=== PATIENT | male | born 1960 | race African-American/Black ===

== ENCOUNTER 2018-06-12 10:30 | Inpatient (IN) | payer OTHER ==
--- NOTE | 2018-06-12 12:06 | HP ---
CIWA Score - CIWA Score Nausea/Vomitin Muscle Tremors: 2 Anxiety: 2 Agitation: 2 Paroxysmal Sweats: 1-Minimal Palms Moist Orientation: 0-Oriented Tacttile Disturbances: 1-Very Mild Itch/Numbness Auditory Disturbances: 1-Very Mild Visual Disturbances: 0-None Headache: 2-Mild CIWA-Ar Total Score: 13 CIWA Score Nausea/Vomitin Muscle Tremors: 2 Anxiety: 2 Agitation: 2 Paroxysmal Sweats: 1-Minimal Palms Moist Orientation: 0-Oriented Tacttile Disturbances: 1-Very Mild Itch/Numbness Auditory Disturbances: 1-Very Mild Visual Disturbances: 0-None Headache: 2-Mild CIWA-Ar Total Score: 13 - Admission Criteria Patient presents the following: CIWA greater than 12, Seizures, delirium tremens or hallucinations in the past 12 hours Admission Criteria Met: Admission criteria met Admission ROS BHS - HPI Chief Complaint: i need help to stop drinking alcohol and marijuana Allergies/Adverse Reactions: Allergies Allergy/AdvReac Type Severity Reaction Status Date / Time fish derived [Fish derived] Allergy Swelling Verified 06/12/18 12:07 No Known Drug Allergies Allergy Verified 06/12/18 12:29 Shellfish Allergy Swelling Verified 06/12/18 12:07 chlordiazepoxide HCl AdvReac sweating Verified 06/12/18 12:07 [From Librium] History of Present Illness: this 58 years old male with alcohol and marijuana dependence,seeking detox, withdrawal symptom,last detox 2016 [place] seizure last 2014 hypertension non compliance last 3 days ago nicotine dependence longest period of sobriety 1 year bipolar disorder plan to go to rehab after detox - Ebola screening Have you traveled outside of the country in the last 21 days: No Have you had contact with anyone from an Ebola affected area: No - Review of Systems Constitutional: Loss of Appetite, Malaise, Night Sweats, Changes in sleep, Weakness, Unintentional Wgt. Loss EENT: reports: Nose Congestion Respiratory: reports: No Symptoms reported Cardiac: reports: Palpitations GI: reports: Nausea, Poor Appetite, Abdominal cramping : reports: No Symptoms Reported Musculoskeletal: reports: Back Pain, Muscle Pain Integumentary: reports: Dryness Neuro: reports: Headache, Tremors Endocrine: reports: No Symptoms Reported Hematology: reports: No Symptoms Reported Psychiatric: reports: No Sypmtoms Reported, Judgement Intact, Mood/Affect Appropiate, Orientated x3, other (bipolar disorder) Patient History - Patient Medical History Hx Anemia: Yes (not sure; not taking any iron supplement) Hx Asthma: Yes (ON ALBUTEROL INHALER) Hx Chronic Obstructive Pulmonary Disease (COPD): No Hx Cancer: No Hx Cardiac Disorders: No Hx Congestive Heart Failure: No Hx Hypertension: Yes (ON MED non compliance) Hx Hypercholesterolemia: Yes (HX OF HIGH CHOLESTEROL BUT NOT ON MEDS.) Hx Pacemaker: No HX Cerebrovascular Accident: No Hx Seizures: No Hx Dementia: No Hx Diabetes: No Hx Gastrointestinal Disorders: Yes (GERD) Hx Liver Disease: No Hx Genitourinary Disorders: No Hx Sexually Transmitted Disorders: No Hx Renal Disease (ESRD): No Hx Thyroid Disease: No Hx Human Immunodeficiency Virus (HIV): No (NEGATIVE LAST 11/21) Hx Hepatitis C: No Hx Depression: Yes Hx Suicide Attempt: Yes (OVERDOSE IN 2011) Hx Bipolar Disorder: Yes Hx Schizophrenia: No Other Medical History: no suicidal,no homicidal - Patient Surgical History Past Surgical History: Yes Hx Neurologic Surgery: No Hx Cataract Extraction: No Hx Cardiac Surgery: No Hx Lung Surgery: No Hx Breast Surgery: No Hx Breast Biopsy: No Hx Abdominal Surgery: No Hx Appendectomy: No Hx Cholecystectomy: No Hx Genitourinary Surgery: No Hx Section: No Hx Orthopedic Surgery: Yes (right small finger in 1992 DAMAGE TO TENDON) Other Surgical History: SX R YAZIDI TO REMOVE CYST Anesthesia Reaction: No - PPD History Previous Implant?: Yes Documented Results: Positive w/o proof PPD to be Administered?: No - Smoking Cessation Smoking history: Current every day smoker Have you smoked in the past 12 months: Yes Aproximately how many cigarettes per day: 30 Cigars Per Day: 0 Hx Chewing Tobacco Use: No Initiated information on smoking cessation: Yes 'Breaking Loose' booklet given: 06/12/18 - Substance & Tx. History Hx Alcohol Use: Yes Hx Substance Use: Yes Substance Use Type: Alcohol, Marijuana Hx Substance Use Treatment: Yes ([facility] 2016) - Substances Abused Alcohol-rum/beer Route: Oral Frequency: Daily Amount used: 2 pts./1-6 pk. Age of first use: 10 Date of Last Use: 06/12/18 Marijuana Route: Smoking Frequency: Daily Amount used: $5 Age of first use: 9 Date of Last Use: 06/11/18 Family Disease History - Family Disease History Family Disease History: Diabetes: Mother (alcohol dependence,), Brother , Heart Disease: Mother, Other: Father (opaite dependence ,), Mother Admission Physical Exam [facility] - Vital Signs Vital Signs: Vital Signs Temperature 97.5 F L 06/14/18 08:04 Pulse Rate 69 06/14/18 08:04 Respiratory Rate 18 06/14/18 08:04 Blood Pressure 122/79 06/14/18 08:04 O2 Sat by Pulse Oximetry (%) - Physical General Appearance: Yes: Moderate Distress, Tremorous, Irritable, Sweating, Anxious HEENTM: Yes: Normal ENT Inspection, TREVON, Pharynx Normal Respiratory: Yes: Lungs Clear, Normal Breath Sounds, No Respiratory Distress Neck: Yes: Within Normal Limits, Supple, Trachea in good position Breast: Yes: Within Normal Limits Cardiology: Yes: Within Normal Limits, Regular Rhythm, Regular Rate, S1, S2 Abdominal: Yes: Within Normal Limits, Normal Bowel Sounds, Non Tender, Soft Genitourinary: Yes: Within Normal Limits Back: Yes: Muscle Spasm Musculoskeletal: Yes: Back pain, Muscle Pain Extremities: Yes: Within Normal Limits, Normal Range of Motion, Tremors Neurological: Yes: rug receiving clerk II-XII NML intact, Alert, Motor Strength 5/5 Integumentary: Yes: Dry Lymphatic: Yes: Within Normal Limits - Diagnostic (1) Alcohol dependence with uncomplicated withdrawal Current Visit: No Status: Acute (2) Cannabis dependence Current Visit: No Status: Acute (3) Nicotine dependence Current Visit: No Status: Acute Qualifiers: Nicotine product type: cigarettes Substance use status: uncomplicated Qualified Code(s): F17.210 - Nicotine dependence, cigarettes, uncomplicated (4) Syncope Current Visit: No Status: Acute (5) Essential hypertension Current Visit: No Status: Chronic (6) Hyperlipidemia Current Visit: No Status: Chronic (7) Bipolar I disorder Current Visit: No Status: Suspected (8) Alcohol related seizure Current Visit: Yes Status: Acute Cleared for Admission [facility] - Detox or Rehab [facility] Level of Care: Medically Managed Detox Regimen/Protocol: Valium S Breath Alcohol Content Breath Alcohol Content: 0
[2018-06-12] MEDS ORDERED: diazePAM 5 MG TABLET PO PRN (12:14)
[2018-06-12] MEDS ORDERED: MAG HYDROX/AL HYDROX/SIMETH 30 ML UNIT-DOSE CUP PO PRN (12:14)
[2018-06-12] MEDS ORDERED: guaiFENesin/D-METHORPHAN HB 10 ML UNIT-DOSE CUPS PO PRN (12:14)
[2018-06-12] MEDS ORDERED: hydrOXYzine PAMOATE 25 MG CAPSULE (FP) PO PRN (12:14)
[2018-06-12] MEDS ORDERED: ACETAMINOPHEN 325 MG TABLET (FP) PO PRN (12:14)
[2018-06-12] MEDS ORDERED: LOPERAMIDE HCL 2 MG CAPSULE PO PRN (12:14)
[2018-06-12] MEDS ORDERED: MAGNESIUM CITRATE 300 ML BOTTLE PO PRN (12:14)
[2018-06-12] MEDS ORDERED: IBUPROFEN 400 MG TABLET (FP) PO PRN (12:14)
[2018-06-12] MEDS ORDERED: P-EPHED 60MG/TRIPROLIDI 2.5MG TABLET PO PRN (12:14)
[2018-06-12] MEDS ORDERED: MAGNESIUM HYDROX 2400MG/30ML ORAL SUSPENSION 30 ML CUP PO PRN (12:14)
[2018-06-12] MEDS ORDERED: MENTHOL/PHENOL 1 EACH UD MM PRN (12:14)
[2018-06-12 12:24] VITALS: BMI 21.6
[2018-06-12] MEDS ORDERED: diazePAM 5 MG TABLET PO ONE (12:45)
[2018-06-12] MEDS: LISINOPRIL 10 MG TABLET (FP) PO SCH (13:33)
[2018-06-12] MEDS: HYDROCHLOROTHIAZIDE 25 MG TABLET (FP) PO SCH (13:35)
--- NOTE | 2018-06-12 13:58 | CONSULT ---
[facility] Psychiatric Consult - Data Date of interview: 06/12/18 Admission source: [facility] Identifying data: This is a 58 years old male, single father of two, living alone, on SSD support with alcohol and marijuana, nicotine dependence,seeking detox and reporting withdrawal symptoms,last detox 2017. \Patient reports psychiatric hospitalization history. Substance Abuse History: - Smoking Cessation. Smoking history: Current every day smoker. Have you smoked in the past 12 months: Yes. Aproximately how many cigarettes per day: 30. Cigars Per Day: 0. Hx Chewing Tobacco Use: No. Initiated information on smoking cessation: Yes. 'Breaking Loose' booklet given : 06/12/18. - Substance & Tx. History. Hx Alcohol Use: Yes. Hx Substance Use : Yes. Substance Use Type: Alcohol, Marijuana. Hx Substance Use Treatment: Yes ([facility] 2016) Medical History: Syncope history, Arthritis, HTN, Hyperlioidemia. Psychiatric History: Patient reports to carry Bipolar Disorder with most recent psychiatric admission at [facility] on 2012, reports suicidal history by OD , with most recent attempt on 2011, denies suicidal, homicidal history since then. Reports taking prior to admission: Seroquel 100mg po qhs. Trazodone 100mg po qhs. Zoloft 100mg poqd Physical/Sexual Abuse/Trauma History: Denies Additional Comment: Seroquel 100mg po qhs. Trazodone 100mg po qhs. Zoloft 100mg poqd Mental Status Exam - Mental Status Exam Alert and Oriented to: Place, Person Cognitive Function: Fair Patient Appearance: Well Groomed Mood: Apprehensive Affect: Mood Congruent Patient Behavior: Cooperative Speech Pattern: Appropriate Voice Loudness: Normal Thought Process: Goal Oriented Thought Disorder: Being Controlled Hallucinations: Denies Suicidal Ideation: Denies Homicidal Ideation: Denies Insight/Judgement: Fair Sleep: Difficulty falling asleep Appetite: Fair Muscle strength/Tone: Normal Gait/Station: Normal Additional Comments: Seroquel 100mg po qhs. Trazodone 100mg po qhs. Zoloft 100mg poqd Psychiatric Findings - Problem List (Bern 1, 2,3) (1) Alcohol related seizure Current Visit: Yes Status: Acute (2) Alcohol dependence Current Visit: No Status: Acute (3) Alcohol dependence with uncomplicated withdrawal Current Visit: No Status: Acute (4) Cannabis dependence Current Visit: No Status: Acute (5) Drug-induced mood disorder Current Visit: No Status: Acute (6) Nicotine dependence Current Visit: No Status: Acute Qualifiers: Nicotine product type: cigarettes Substance use status: uncomplicated Qualified Code(s): F17.210 - Nicotine dependence, cigarettes, uncomplicated (7) Syncope Current Visit: No Status: Acute (8) Chronic gastritis Current Visit: No Status: Chronic (9) Essential hypertension Current Visit: No Status: Chronic (10) Hyperlipidemia Current Visit: No Status: Chronic (11) Bipolar I disorder Current Visit: No Status: Suspected - Initial Treatment Plan Initial Treatment Plan: Seroquel 100mg po qhs. Trazodone 100mg po qhs. Zoloft 100mg poqd
--- NOTE | 2018-06-12 14:39 | EKG ---
Test Reason : Blood Pressure : / mmHG Vent. Rate : 065 BPM Atrial Rate : 065 BPM P-R Int : 134 ms QRS Dur : 096 ms QT Int : 392 ms P-R-T Axes : 073 -04 065 degrees QTc Int : 407 ms NORMAL SINUS RHYTHM NORMAL ECG NO PREVIOUS ECGS AVAILABLE Confirmed by KEHINDE HENRIQUEZ MD ([id number]) on 06/12/2018 2:39:10 PM Referred By: Confirmed By:KEHINDE HENRIQUEZ MD
[2018-06-12] MEDS: diazePAM 5 MG TABLET PO SCH ×2 (15:46→22:10)
[2018-06-12 17:45] LABS: URINE APPEARANCE CLEAR; URINE BILIRUBIN NEGATIVE (<2.0 mg/dL); URINE COLOR YELLOW; URINE GLUCOSE (UA) NEGATIVE (NEGATIVE); URINE KETONE NEGATIVE (NEGATIVE); URINE LEUK ESTERASE NEGATIVE (NEGATIVE); URINE NITRITE NEGATIVE (NEGATIVE); URINE PROTEIN 2+ (NEGATIVE)
[2018-06-12 17:51] LABS: URINE MUCUS RARE
[2018-06-12 18:02] LABS: EPI CELLS RARE /HPF (FEW); URINE HYALINE CAST 1 /lpf
[2018-06-12] MEDS ORDERED: MELATONIN 5 MG TABLETS PO PRN (22:00)
[2018-06-12] MEDS: THIAMINE HCL 100 MG TABLET (FP) PO SCH (22:10)
[2018-06-13] MEDS: diazePAM 5 MG TABLET PO SCH ×3 (06:11→22:43)
[2018-06-13] MEDS ORDERED: PRENATAL VITAMINS W/ FOLIC ACID TABLET (FP) PO SCH (10:00)
[2018-06-13] MEDS: ASPIRIN 81 MG CHEWABLE TABLETS PO SCH (11:07)
[2018-06-13] MEDS: PANTOPRAZOLE 40 MG TABLET (FP) PO SCH (11:08)
[2018-06-13] MEDS: HYDROCHLOROTHIAZIDE 25 MG TABLET (FP) PO SCH (11:08)
[2018-06-13] MEDS: LISINOPRIL 10 MG TABLET (FP) PO SCH ×2 (11:08→22:42)
[2018-06-13 11:34] LABS: HEMATOCRIT 43.1 % (35.4-49); HEMOGLOBIN 14.1 GM/dL (11.7-16.9); MCH 31.7 pg (25.7-33.7); MCHC 32.7 g/dl (32.0-35.9); MEAN CELL VOLUME 96.8 fl (80-96); MEAN PLT VOLUME 10.1 fl (7.5-11.1); PLATELET COUNT 197 K/MM3 (134-434); RBC 4.46 M/mm3 (4.00-5.60); RDW 13.6 % (11.9-15.9); WHITE BLOOD COUNT 5.7 K/mm3 (4.0-10.0)
[2018-06-13 11:47] LABS: ALBUMIN 3.6 g/dl (3.4-5.0); ALK PHOS 69 U/L (45-117); ANION GAP 6 MMOL/L (8-16); BILIRUBIN,TOTAL 0.4 mg/dL (0.2-1); BLOOD UREA NITROGEN 12 mg/dL (7-18); CHLORIDE 100 mmol/L (98-107); CO2 33 mmol/L (21-32); CREATININE 0.9 mg/dL (0.55-1.3); GLUCOSE,RANDOM 73 mg/dL (74-106); SGOT/AST 26 U/L (15-37); SGPT/ALT 26 U/L (13-61); SODIUM 140 mmol/L (136-145)
--- NOTE | 2018-06-13 13:56 | PN ---
S CIWA - CIWA Score Nausea/Vomitin-Mild Nausea/No Vomiting Muscle Tremors: 3 Anxiety: 2 Agitation: 2 Paroxysmal Sweats: 1-Minimal Palms Moist Orientation: 1-Uncertain about Date Tacttile Disturbances: 1-Very Mild Itch/Numbness Auditory Disturbances: 1-Very Mild Visual Disturbances: 0-None Headache: 0-None Present CIWA-Ar Total Score: 12 BHS Progress Note (SOAP) Subjective: anxiety restlessness sweat tremor gi distress Objective: 06/13/18 13:57 Vital Signs Temperature 97.7 F 06/13/18 13:48 Pulse Rate 61 06/13/18 13:48 Respiratory Rate 18 06/13/18 13:48 Blood Pressure 147/80 06/13/18 13:48 O2 Sat by Pulse Oximetry (%) Laboratory Last Values WBC 5.7 K/mm3 (4.0-10.0) 06/13/18 06:00 RBC 4.46 M/mm3 (4.00-5.60) 06/13/18 06:00 Hgb 14.1 GM/dL (11.7-16.9) 06/13/18 06:00 Hct 43.1 % (35.4-49) 06/13/18 06:00 MCV 96.8 fl (80-96) H 06/13/18 06:00 MCH 31.7 pg (25.7-33.7) 06/13/18 06:00 MCHC 32.7 g/dl (32.0-35.9) 06/13/18 06:00 RDW 13.6 % (11.9-15.9) D 06/13/18 06:00 Plt Count 197 K/MM3 (134-434) 06/13/18 06:00 MPV 10.1 fl (7.5-11.1) 06/13/18 06:00 Sodium 140 mmol/L (136-145) 06/13/18 06:00 Potassium 4.0 mmol/L (3.5-5.1) 06/13/18 06:00 Chloride 100 mmol/L (98-107) 06/13/18 06:00 Carbon Dioxide 33 mmol/L (21-32) H 06/13/18 06:00 Anion Gap 6 MMOL/L (8-16) L 06/13/18 06:00 BUN 12 mg/dL (7-18) 06/13/18 06:00 Creatinine 0.9 mg/dL (0.55-1.3) 06/13/18 06:00 Creat Clearance w eGFR > 60 (>60) 06/13/18 06:00 Random Glucose 73 mg/dL (74-106) L 06/13/18 06:00 Calcium 9.0 mg/dL (8.5-10.1) 06/13/18 06:00 Total Bilirubin 0.4 mg/dL (0.2-1) 06/13/18 06:00 AST 26 U/L (15-37) 06/13/18 06:00 ALT 26 U/L (13-61) 06/13/18 06:00 Alkaline Phosphatase 69 U/L (45-117) 06/13/18 06:00 Total Protein 7.0 g/dl (6.4-8.2) 06/13/18 06:00 Albumin 3.6 g/dl (3.4-5.0) 06/13/18 06:00 Urine Color Yellow 06/12/18 16:00 Urine Appearance Clear 06/12/18 16:00 Urine pH 5.0 (5.0-8.0) 06/12/18 16:00 Ur Specific [place] 1.021 (1.010-1.035) 06/12/18 16:00 Urine Protein 2+ (NEGATIVE) H 06/12/18 16:00 Urine Glucose (UA) Negative (NEGATIVE) 06/12/18 16:00 Urine Ketones Negative (NEGATIVE) 06/12/18 16:00 Urine Blood 1+ (NEGATIVE) H 06/12/18 16:00 Urine Nitrite Negative (NEGATIVE) 06/12/18 16:00 Urine Bilirubin Negative (<2.0 mg/dL) 06/12/18 16:00 Urine Urobilinogen 2.0 mg/dL (0.2-1.0) 06/12/18 16:00 Ur Leukocyte Esterase Negative (NEGATIVE) 06/12/18 16:00 Urine WBC (Auto) <1 /hpf (3-5) 06/12/18 16:00 Urine RBC (Auto) 1 /hpf (0-3) 06/12/18 16:00 Ur Epithelial Cells Rare /HPF (FEW) 06/12/18 16:00 Hyaline Casts 1 /lpf 06/12/18 16:00 Urine Mucus Rare 06/12/18 16:00 RPR Titer Nonreactive (NONREACTIVE) 06/13/18 06:00 HIV 1&2 Antibody Screen Negative 06/12/18 12:20 HIV P24 Antigen Negative 06/12/18 12:20 lab noted Assessment: 06/13/18 13:57 withdrawal sx Plan: continue detox
[2018-06-13] MEDS ORDERED: QUEtiapine FUMARATE 100 MG TABLET (FP) PO SCH (22:00)
[2018-06-13] MEDS: THIAMINE HCL 100 MG TABLET (FP) PO SCH (22:42)
[2018-06-14] MEDS: ASPIRIN 81 MG CHEWABLE TABLETS PO SCH (09:41)
[2018-06-14] MEDS: LISINOPRIL 10 MG TABLET (FP) PO SCH (09:41)
[2018-06-14] MEDS: PANTOPRAZOLE 40 MG TABLET (FP) PO SCH (09:41)
[2018-06-14] MEDS: HYDROCHLOROTHIAZIDE 25 MG TABLET (FP) PO SCH (09:41)
[2018-06-14 09:50] VITALS: BP 144/99; PULSE 74; TEMP 97.3
[2018-06-14] MEDS ORDERED: diazePAM 5 MG TABLET PO SCH (10:00)
--- NOTE | 2018-06-14 14:11 | DS ---
[facility] Detox Discharge Summary Admission Date: 06/12/18 Discharge Date: 06/14/18 - History Present History: Alcohol Dependence Additional Comments: 58 years old male admitted on 06/12/18 for alcohol withdrawal sx insists to leave the detox unit alert oriented x 3 no acute distress denies suicidal denies homocidal no self destructive behavior noted aftercare [facility] - Physical Exam Results Vital Signs: Vital Signs Temperature 97.3 F L 06/14/18 09:49 Pulse Rate 74 06/14/18 09:49 Respiratory Rate 18 06/14/18 09:49 Blood Pressure 144/99 06/14/18 09:49 O2 Sat by Pulse Oximetry (%) Pertinent Admission Physical Exam Findings: alcohol withdrawal sx Vital Signs Temperature 97.3 F L 06/14/18 09:49 Pulse Rate 74 06/14/18 09:49 Respiratory Rate 18 06/14/18 09:49 Blood Pressure 144/99 06/14/18 09:49 O2 Sat by Pulse Oximetry (%) Laboratory Last Values WBC 5.7 K/mm3 (4.0-10.0) 06/13/18 06:00 RBC 4.46 M/mm3 (4.00-5.60) 06/13/18 06:00 Hgb 14.1 GM/dL (11.7-16.9) 06/13/18 06:00 Hct 43.1 % (35.4-49) 06/13/18 06:00 MCV 96.8 fl (80-96) H 06/13/18 06:00 MCH 31.7 pg (25.7-33.7) 06/13/18 06:00 MCHC 32.7 g/dl (32.0-35.9) 06/13/18 06:00 RDW 13.6 % (11.9-15.9) D 06/13/18 06:00 Plt Count 197 K/MM3 (134-434) 06/13/18 06:00 MPV 10.1 fl (7.5-11.1) 06/13/18 06:00 Sodium 140 mmol/L (136-145) 06/13/18 06:00 Potassium 4.0 mmol/L (3.5-5.1) 06/13/18 06:00 Chloride 100 mmol/L (98-107) 06/13/18 06:00 Carbon Dioxide 33 mmol/L (21-32) H 06/13/18 06:00 Anion Gap 6 MMOL/L (8-16) L 06/13/18 06:00 BUN 12 mg/dL (7-18) 06/13/18 06:00 Creatinine 0.9 mg/dL (0.55-1.3) 06/13/18 06:00 Creat Clearance w eGFR > 60 (>60) 06/13/18 06:00 Random Glucose 73 mg/dL (74-106) L 06/13/18 06:00 Calcium 9.0 mg/dL (8.5-10.1) 06/13/18 06:00 Total Bilirubin 0.4 mg/dL (0.2-1) 06/13/18 06:00 AST 26 U/L (15-37) 06/13/18 06:00 ALT 26 U/L (13-61) 06/13/18 06:00 Alkaline Phosphatase 69 U/L (45-117) 06/13/18 06:00 Total Protein 7.0 g/dl (6.4-8.2) 06/13/18 06:00 Albumin 3.6 g/dl (3.4-5.0) 06/13/18 06:00 Urine Color Yellow 06/12/18 16:00 Urine Appearance Clear 06/12/18 16:00 Urine pH 5.0 (5.0-8.0) 06/12/18 16:00 Ur Specific [place] 1.021 (1.010-1.035) 06/12/18 16:00 Urine Protein 2+ (NEGATIVE) H 06/12/18 16:00 Urine Glucose (UA) Negative (NEGATIVE) 06/12/18 16:00 Urine Ketones Negative (NEGATIVE) 06/12/18 16:00 Urine Blood 1+ (NEGATIVE) H 06/12/18 16:00 Urine Nitrite Negative (NEGATIVE) 06/12/18 16:00 Urine Bilirubin Negative (<2.0 mg/dL) 06/12/18 16:00 Urine Urobilinogen 2.0 mg/dL (0.2-1.0) 06/12/18 16:00 Ur Leukocyte Esterase Negative (NEGATIVE) 06/12/18 16:00 Urine WBC (Auto) <1 /hpf (3-5) 06/12/18 16:00 Urine RBC (Auto) 1 /hpf (0-3) 06/12/18 16:00 Ur Epithelial Cells Rare /HPF (FEW) 06/12/18 16:00 Hyaline Casts 1 /lpf 06/12/18 16:00 Urine Mucus Rare 06/12/18 16:00 RPR Titer Nonreactive (NONREACTIVE) 06/13/18 06:00 HIV 1&2 Antibody Screen Negative 06/12/18 12:20 HIV P24 Antigen Negative 06/12/18 12:20 lab noted - Treatment Hospital Course: Detox Protocol Followed, Responded well Patient has Accepted a Rehab Referral to: [facility] - Medication Discharge Medications: Ambulatory Orders Quetiapine Fumarate [Seroquel] 100 mg PO HS #30 tablet 01/09/15 Hydrochlorothiazide [Hctz -] 25 mg PO DAILY #30 tablet 01/13/15 Lisinopril [Prinivil] 10 mg PO DAILY 02/24/16 Sertraline HCl [Zoloft -] 100 mg PO DAILY 02/24/16 Aspirin [ASA -] 81 mg PO DAILY #30 tab.chew 02/25/16 Pantoprazole Sodium [Protonix -] 40 mg PO DAILY #30 tablet.ec 02/25/16 traZODone HCL [Desyrel -] 100 mg PO HS #30 tablet 02/25/16 Quetiapine Fumarate [Seroquel] 100 mg PO HS #30 tablet 06/13/18 - Diagnosis (1) Alcohol dependence with uncomplicated withdrawal Status: Acute (2) Nicotine dependence Status: Acute Qualifiers: Nicotine product type: cigarettes Substance use status: in withdrawal Qualified Code(s): F17.213 - Nicotine dependence, cigarettes, with withdrawal (3) Essential hypertension Status: Chronic (4) Hyperlipidemia Status: Chronic - AMA Did Patient Leave Against Medical Advice: No
[2018-06-16] MEDS ORDERED: diazePAM 5 MG TABLET PO SCH (10:00)
== END 2018-06-14 09:49 | disposition left against medical advice (07) | DRG 894 ==
LOC: YASAS 10:30 → Y6N 12:17
PROC: HZ2ZZZZ Detoxification Services for Substance Abuse Treatment (ICD-10-PCS; principal; 2018-06-12)
DX: F10.230 Alcohol dependence with withdrawal, uncomplicated (principal); F31.89 Other bipolar disorder; F12.20 Cannabis dependence, uncomplicated; F17.213 Nicotine dependence, cigarettes, with withdrawal; F19.24 Other psychoactive substance dependence with psychoactive substance-induced mood disorder; I10 Essential (primary) hypertension; E78.5 Hyperlipidemia, unspecified; K29.50 Unspecified chronic gastritis without bleeding; K21.9 Gastro-esophageal reflux disease without esophagitis; J45.909 Unspecified asthma, uncomplicated; Z91.14 Patient's other noncompliance with medication regimen; Z86.69 Personal history of other diseases of the nervous system and sense organs; Z91.013 Allergy to seafood
CPT/HCPCS: 36415; 71046-TC-FY; 80053; 81003; 81015; 85027; 86593; 87389; 93005; 93010